=== PATIENT | male | born 1990 | race Caucasian/White ===

== ENCOUNTER 2017-03-16 02:37 | Emergency (ER) | payer OTHER ==
[2017-03-16 02:57] VITALS: BP 109/60; PULSE 80; TEMP 97.6; BMI 26.6
[2017-03-16] MEDS ORDERED: KETOROLAC TROMETHAMINE 30 MG/1 ML VIAL IM ONE (03:37)
--- NOTE | 2017-03-16 03:38 | PDOC ---
History of Present Illness - General Chief Complaint: Pain Stated Complaint: INJURY TO RIGHT HAND/PAIN Time Seen by Provider: 03/16/17 03:28 History Source: Patient Exam Limitations: No Limitations - History of Present Illness Initial Comments: 03/16/17 03:33 26yo Male patient presents to ED c/o right hand pain. Patient states 2 days ago he punched a wall and was seen at [facility], dx with right hand fracture. He states he was splinted and sent home. Patient states as the day went on, pain worsened and he unwrapped the splint. He was then seen at [facility] in [place], where a CT-Scan of right upper extremity done, and hand re-splinted. Patient reports he was dx: with fracture and dislocation. He reports today with c/o inadequate pain management. He has no other complaints at this time. Timing/Duration: getting worse Severity: moderate Modifying Factors: improves with: cold therapy, medication. worse with: eating , immobilization, movement, rest, other Associated Symptoms: denies: denies symptoms, chest pain, cough, diaphoresis, fever/chills, headaches, loss of appetite, malaise, nausea/vomiting, rash, seizure, shortness of breath, syncope, weakness, other Aspirin Received prior to arrival: No: no aspirin today, unknown, 81 mg x 1, 81 mg x 2, 81 mg x 3, 81 mg x 4, 325 mg x 1, provided at home, provided by EMS, provided by ED Past History - Travel Traveled outside of the country in the last 30 days: No Close contact w/someone who was outside of country & ill: No - Past Medical History Allergies/Adverse Reactions: Allergies Allergy/AdvReac Type Severity Reaction Status Date / Time No Known Allergies Allergy Verified 03/16/17 02:55 Home Medications: Ambulatory Orders Ibuprofen 800 mg PO Q6H PRN #30 tablet 03/16/17 Oxycodone HCl/Acetaminophen [Percocet 10-325 mg Tablet] 1 each PO Q6H PRN #12 tablet MDD 4 tab 03/16/17 - Suicide/Smoking/Psychosocial Hx Smoking History: Never smoked Have you smoked in the past 12 months: No Information on smoking cessation initiated: No Hx Alcohol Use: No Drug/Substance Use Hx: No Substance Use Type: None Review of Systems - Review of Systems Able to Perform ROS?: Yes Is the patient limited Maltese proficient: No Musculoskeletal: Yes: Other (Fractured Right hand) All Other Systems: Reviewed and Negative *Physical Exam - Vital Signs Last Vital Signs Temp Pulse Resp BP Pulse Ox 97.6 F 80 20 109/60 98 03/16/17 02:55 03/16/17 02:55 03/16/17 02:55 03/16/17 02:55 03/16/17 02:55 - Physical Exam General Appearance: Yes: Nourished, Appropriately Dressed, Mild Distress. No: Apparent Distress, Moderate Distress, Severe Distress Respiratory/Chest: positive: Lungs Clear, Normal Breath Sounds. negative: Chest Tender, Respiratory Distress, Accessory Muscle Use, Labored Respiration, Rapid RR, Rhonchi, Stridor Cardiovascular: positive: Regular Rhythm, Regular Rate Musculoskeletal: positive: Normal Inspection. negative: CVA Tenderness, Decreased Range of Motion, Vertebral Tenderness Extremity: positive: Normal Capillary Refill, Tender (Right Hand), Swelling ( Right Hand). negative: Normal Inspection (Right Hand ), Normal Range of Motion (Right Hand) Integumentary: positive: Normal Color, Dry, Warm, Bruising (Right Hand) Neurologic: positive: immigration services officer II-XII NML intact, Fully Oriented, Alert, Normal Mood/ Affect, Normal Response, Motor Strength 5/5 *DC/Admit/Observation/Transfer Diagnosis at time of Disposition: Injury of hand, right Qualifiers: Encounter type: initial encounter Qualified Code(s): S69.91XA - Unspecified injury of right wrist, hand and finger(s), initial encounter; S69.91XA - Unspecified injury of right wrist, hand and finger(s), initial encounter - Discharge Dispostion Disposition: HOME Condition at time of disposition: Stable Admit: No - Prescriptions Prescriptions: Ibuprofen 800 mg PO Q6H PRN #30 tablet PRN Reason: Mild to Moderate Pain Oxycodone HCl/Acetaminophen [Percocet 10-325 mg Tablet] 1 each PO Q6H PRN #12 tablet MDD 4 tab PRN Reason: Severe Pain - Referrals Referrals: Scott Rome [Primary Care Provider] - Tim Ch MD [Staff Physician] - - Patient Instructions Printed Discharge Instructions: DI for Boxer's Fracture Additional Instructions: Follow up with Dr. Ch (Orthopedic) this week. Call to schedule appointment. Continue to apply ice every 3-4 hours for 10 mins on and off. Take medications as prescribed. Do not drive, drink alcohol, or operate heavy machinery while taking Percocet. Keep arm in sling while out of bed, and elevated on top of pillow while resting in bed. Return if symptoms worsen or any concerns for further evaluation. Print Language: MALTESE
[2017-03-16] MEDS ORDERED: KETOROLAC TROMETHAMINE 60 MG/2 ML VIAL ONE (03:40)
== END 2017-03-16 04:05 | disposition home or self-care (01) ==
LOC: JER 02:37
DX: S62.91XD Unspecified fracture of right hand, subsequent encounter for fracture with routine healing (principal); W22.8XXD Striking against or struck by other objects, subsequent encounter
CPT/HCPCS: 99281-25